=== PATIENT | female | born 1970 | race Asian ===

== ENCOUNTER 2016-12-22 09:39 | Outpatient (CLI) | payer OTHER ==
[2016-12-22 10:08] LABS: BASOPHILS # (AUTO) 0.1 K/uL (0.00-0.22); BASOPHILS % (AUTO) 1.5 % (0.0-2.0); EOSINOPHILS # (AUTO) 0.2 K/uL (0-0.4); HEMATOCRIT 42.7 % (36-48); HEMOGLOBIN 14.2 g/dL (12.0-16.0); LYMPHOCYTES # (AUTO) 2.6 K/uL (2.5-16.5); LYMPHOCYTES % (AUTO) 26.3 % (20.5-51.1); MEAN CORPUSCULAR HEMOGLOBIN 28 pg (27-31); MEAN CORPUSCULAR HGB CONC 33 g/dL (33-37); MEAN CORPUSCULAR VOLUME 85 fL (80-94); MONOCYTES # (AUTO) 0.6 K/uL (0.8-1.0); MONOCYTES % (AUTO) 6.5 % (1.7-9.3); NEUTROPHILS # (AUTO) 6.4 K/uL (1.8-7.7); NEUTROPHILS % (AUTO) 63.7 % (42.2-75.2); PLATELET COUNT (AUTO) 205 K/uL (140-450); RED BLOOD CELL COUNT(AUTO) 5.03 MIL/uL (4.20-5.40); RED CELL DISTRIBUTION WIDTH 12.7 % (11.6-13.7); WHITE BLOOD COUNT (AUTO) 9.9 K/uL (4.8-10.8)
[2016-12-22 11:25] LABS: ALBUMIN 3.7 g/dL (3.4-5.0); ANION GAP 12.4 (8-16); CARBON DIOXIDE 27.6 mmol/L (21-32); CHOL/HDL RATIO 2.6 (1-4.5); CREATININE 0.8 mg/dL (0.6-1.3); THYROID STIMULATING HORMONE 1.91 uIU/mL (0.34-3.74); TOTAL BILIRUBIN 0.9 mg/dL (0.0-1.0)
[2016-12-22 11:28] LABS: URIC ACID 3.8 mg/dL (2.6-7.2)
[2016-12-23 21:03] LABS: T4 (THYROXINE) 7.9 ug/dL (4.5 - 12.0)
== END 2016-12-22 21:03 | disposition home or self-care (01) ==
LOC: MLB 09:39
PROVIDERS: ATTEND Obstetrics & Gynecology
DX: Z00.01 Encounter for general adult medical examination with abnormal findings (principal); Z01.419 Encounter for gynecological examination (general) (routine) without abnormal findings
CPT/HCPCS: 36415; 80053; 83036; 84436; 84443; 84550; 85025; 86304

== ENCOUNTER 2017-01-04 14:17 | Outpatient (CLI) | payer OTHER | END 2017-01-04 19:54 | disposition home or self-care (01) | LOC: MUS 14:17 | PROVIDERS: ATTEND Internal Medicine | DX: N92.1 Excessive and frequent menstruation with irregular cycle (principal) | CPT/HCPCS: 76856 ==

== ENCOUNTER 2020-09-17 08:29 | Outpatient (CLI) | payer OTHER ==
[2020-09-17 09:52] LABS: BASOPHILS # (AUTO) 0.1 K/uL (0.00-0.22); BASOPHILS % (AUTO) 0.6 % (0.0-2.0); EOSINOPHILS # (AUTO) 0.2 K/uL (0-0.4); EOSINOPHILS % (AUTO) 2.7 % (0.0-4.0); HEMATOCRIT 44.6 % (36-48); HEMOGLOBIN 14.6 g/dL (12.0-16.0); LYMPHOCYTES # (AUTO) 2.8 K/uL (2.5-16.5); LYMPHOCYTES % (AUTO) 31.5 % (20.5-51.1); MEAN CORPUSCULAR HEMOGLOBIN 29 pg (27-31); MEAN CORPUSCULAR HGB CONC 33 g/dL (33-37); MEAN CORPUSCULAR VOLUME 87.2 fL (80-94); MONOCYTES # (AUTO) 0.6 K/uL (0.8-1.0); MONOCYTES % (AUTO) 7.2 % (1.7-9.3); NEUTROPHILS # (AUTO) 5.2 K/uL (1.8-7.7); PLATELET COUNT (AUTO) 246 K/uL (140-450); RED BLOOD CELL COUNT(AUTO) 5.11 MIL/uL (4.20-5.40); RED CELL DISTRIBUTION WIDTH 13.4 % (11.6-13.7); WHITE BLOOD COUNT (AUTO) 8.9 K/uL (4.8-10.8)
[2020-09-17 10:09] LABS: ALBUMIN 3.8 g/dL (3.4-5.0); ANION GAP 9.6 (8-16); BILIRUBIN,DIRECT 0.2 mg/dL (0.0-0.3); CARBON DIOXIDE 29.5 mmol/L (21-32); CHOL/HDL RATIO 3.1 (1-4.5); CREATININE 0.7 mg/dL (0.6-1.3); POTASSIUM 4.1 mmol/L (3.5-5.1); THYROID STIMULATING HORMONE 1.7 uIU/mL (0.34-3.74); TOTAL BILIRUBIN 0.8 mg/dL (0.0-1.0)
== END 2020-09-17 21:10 | disposition home or self-care (01) ==
LOC: MLB 08:29
PROVIDERS: ATTEND Internal Medicine
DX: Z00.00 Encounter for general adult medical examination without abnormal findings (principal)
CPT/HCPCS: 36415; 80053; 80076; 84439; 84443; 84550; 85025

== ENCOUNTER 2020-09-27 15:45 | Outpatient (CLI) | payer OTHER | END 2020-09-27 20:18 | disposition home or self-care (01) | LOC: MRD 15:45 | PROVIDERS: ATTEND Internal Medicine | DX: M47.814 Spondylosis without myelopathy or radiculopathy, thoracic region (principal); M54.2 Cervicalgia; M54.5 Low back pain | CPT/HCPCS: 72040; 72072; 72100 ==

== ENCOUNTER 2021-08-23 15:30 | Outpatient (CLI) | payer OTHER | END 2021-08-23 22:01 | disposition home or self-care (01) | LOC: MRD 15:30 | PROVIDERS: ATTEND Internal Medicine | DX: M79.644 Pain in right finger(s) (principal); M25.561 Pain in right knee | CPT/HCPCS: 73140; 73562 ==

== ENCOUNTER 2021-12-28 22:08 | Emergency (ER) | payer OTHER ==
[~2021-12-28] VITALS: Ht 160 cm; Wt 72.6 kg
[2021-12-28 23:03] VITALS: BP 135/89
--- NOTE | 2021-12-28 23:15 | NUR ---
TO LOBBY FOLLOWING TRIAGE, UA OBTAINED
[2021-12-28 23:34] LABS: APPEARANCE,URINE CLOUDY (CLEAR); BILIRUBIN,URINE NEGATIVE (NEGATIVE); BLOOD, URINE 3+ (NEGATIVE); COLOR,URINE YELLOW (YELLOW); LEUKOCYTE ESTERASE ,URINE 3+ (NEGATIVE); NITRITE, URINE NEGATIVE (NEGATIVE); UGLUCOSE NEGATIVE (NEGATIVE)
[2021-12-28 23:50] LABS: RBC,URINE >20 (MANY) /HPF (0-5); WBC,URINE TOO MANY TO COUNT /HPF (0-5)
--- NOTE | 2021-12-29 00:15 | NUR ---
PT TO BED 8
--- NOTE | 2021-12-29 00:16 | NUR ---
Pt coming from home ambulatpry with steady gait accompanied by spouse. Pt c/o urinary frequency and burning sensation. Pt has no other c/o. A&Ox4. VSS. Skin intact. NKA. No known medical conditions. Bed in lowest position.
[2021-12-29] MEDS ORDERED: cephALEXin 500 MG CAP PO ONE (00:55)
[2021-12-29] MEDS ORDERED: PHENAZOPYRIDINE 100 MG TAB PO ONE (00:55)
[2021-12-29] MEDS ORDERED: CEPH500C16 PO (01:18)
[2021-12-29] MEDS ORDERED: PYR100 PO (01:18)
[2021-12-29 01:30] VITALS: BP 135/89
--- NOTE | 2021-12-29 01:30 | NUR ---
Patient discharged with v/s stable. Written and verbal after care instructions given and explained. Patient alert, oriented and verbalized understanding of instructions. Ambulatory with steady gait. All questions addressed prior to discharge. ID band removed. Patient advised to follow up with PMD. Rx of KEFLEX, PYRIDIUM given. Patient educated on indication of medication including possible reaction and side effects. Opportunity to ask questions provided and answered.
== END 2021-12-29 01:30 | disposition home or self-care (01) ==
LOC: MED 22:08
DX: N30.00 Acute cystitis without hematuria (principal)
CPT/HCPCS: 81001; 81025; 87086; 99283

== ENCOUNTER 2022-07-07 08:37 | Outpatient (CLI) | payer OTHER ==
[~2022-07-07 08:37] MED LIST: CEPH500C16 PO; PYR100 PO
[2022-07-07 09:12] LABS: ALBUMIN 3.9 g/dL (3.4-5.0); ANION GAP 10.6 (8-16); BILIRUBIN,DIRECT 0.2 mg/dL (0.0-0.3); CARBON DIOXIDE 29.6 mmol/L (21-32); CHOL/HDL RATIO 2.6 (1-4.5); CREATININE 0.9 mg/dL (0.6-1.3); POTASSIUM 4.2 mmol/L (3.5-5.1); TOTAL BILIRUBIN 0.6 mg/dL (0.0-1.0)
[2022-07-07 09:28] LABS: BASOPHILS # (AUTO) 0.1 K/uL (0.00-0.22); BASOPHILS % (AUTO) 0.9 % (0.0-2.0); EOSINOPHILS # (AUTO) 0.2 K/uL (0-0.4); HEMATOCRIT 42.6 % (36-48); LYMPHOCYTES # (AUTO) 2.4 K/uL (2.5-16.5); LYMPHOCYTES % (AUTO) 26.4 % (20.5-51.1); MEAN CORPUSCULAR HEMOGLOBIN 28 pg (27-31); MEAN CORPUSCULAR HGB CONC 33 g/dL (33-37); MEAN CORPUSCULAR VOLUME 84.5 fL (80-94); MONOCYTES # (AUTO) 0.6 K/uL (0.8-1.0); MONOCYTES % (AUTO) 6.5 % (1.7-9.3); NEUTROPHILS # (AUTO) 5.8 K/uL (1.8-7.7); NEUTROPHILS % (AUTO) 64.2 % (42.2-75.2); PLATELET COUNT (AUTO) 249 K/uL (140-450); RED BLOOD CELL COUNT(AUTO) 5.04 MIL/uL (4.20-5.40); RED CELL DISTRIBUTION WIDTH 13.6 % (11.6-13.7); WHITE BLOOD COUNT (AUTO) 9.1 K/uL (4.8-10.8)
== END 2022-07-07 17:10 | disposition home or self-care (01) ==
LOC: MLB 08:37
PROVIDERS: ATTEND Internal Medicine
DX: Z00.00 Encounter for general adult medical examination without abnormal findings (principal)
CPT/HCPCS: 36415; 80053; 80076; 83036; 85025

== ENCOUNTER 2022-11-23 22:47 | Emergency (ER) | payer OTHER ==
[~2022-11-23] VITALS: Ht 160 cm; Wt 72.6 kg
[2022-11-23 23:05] VITALS: BP 134/74; PULSE 90; RESP 16; TEMP 97.4; O2SAT 98
[2022-11-23 23:28] LABS: APPEARANCE,URINE SL CLOUDY (CLEAR); BILIRUBIN,URINE NEGATIVE (NEGATIVE); BLOOD, URINE 3+ (NEGATIVE); COLOR,URINE YELLOW (YELLOW); LEUKOCYTE ESTERASE ,URINE 2+ (NEGATIVE); NITRITE, URINE NEGATIVE (NEGATIVE); PROTEIN,URINE NEGATIVE (NEGATIVE); UGLUCOSE NEGATIVE (NEGATIVE); UROBILINOGEN,URINE 0.2 EU/dL (0.2 - 1)
[2022-11-23 23:33] LABS: BACTERIA,URINE 10-30 (MOD) /HPF (None Seen); MUCUS,URINE 1+ /LPF (None Seen); SQUAMOUS EPITHELIAL CELL,UR 0-3 (FEW) /LPF (0-3 (FEW))
[2022-11-24] MEDS ORDERED: PHENAZOPYRIDINE 100 MG TAB PO ONE (00:50)
[2022-11-24] MEDS ORDERED: cephALEXin 500 MG CAP PO ONE (00:50)
[2022-11-24] MEDS ORDERED: NAPR-54 PO (00:51)
[2022-11-24] MEDS ORDERED: CEPH-588 PO (00:51)
[2022-11-24] MEDS ORDERED: PYR100 PO (00:51)
[2022-11-24 01:04] VITALS: BP 134/74; PULSE 90; RESP 16; TEMP 97.4; O2SAT 98
== END 2022-11-24 01:04 | disposition home or self-care (01) ==
LOC: MED 22:47
DX: N39.0 Urinary tract infection, site not specified (principal); I10 Essential (primary) hypertension; Z79.899 Other long term (current) drug therapy; Z79.1 Long term (current) use of non-steroidal anti-inflammatories (NSAID); Z79.2 Long term (current) use of antibiotics
CPT/HCPCS: 81001; 87086; 99283

== ENCOUNTER 2023-06-03 11:31 | Emergency (ER) | payer OTHER ==
[~2023-06-03] VITALS: Ht 160 cm; Wt 71.7 kg
[~2023-06-03 11:31] MED LIST changes: +CEPH-588 PO; +NAPR-337 PO
[2023-06-03 11:54] VITALS: BP 120/83; PULSE 77; RESP 16; TEMP 97.9; O2SAT 98
[2023-06-03] MEDS ORDERED: CEPH-588 PO (12:12)
[2023-06-03 12:25] VITALS: BP 120/83; PULSE 77; RESP 16; TEMP 97.9; O2SAT 98
== END 2023-06-03 12:24 | disposition home or self-care (01) ==
LOC: MED 11:31
DX: L03.114 Cellulitis of left upper limb (principal); Z79.899 Other long term (current) drug therapy
CPT/HCPCS: 99283